=== PATIENT | female | born 1965 | race Caucasian/White ===

== ENCOUNTER 2018-08-22 09:14 | Emergency (ER) | payer OTHER | END 2018-08-22 15:19 | disposition home or self-care (01) | LOC: JER 09:14 ==

== ENCOUNTER 2018-11-04 11:06 | Emergency (ER) | payer OTHER ==
[2018-11-04 11:19] VITALS: BP 113/56; PULSE 71; TEMP 97.7; BMI 39.1
--- NOTE | 2018-11-04 12:11 | PDOC ---
History of Present Illness - General Chief Complaint: Ingestion Stated Complaint: INGESTION Time Seen by Provider: 11/04/18 11:38 History Source: Patient Exam Limitations: Other (leg blind) - History of Present Illness Initial Comments: 11/04/18 12:02 53-year-old female with history of legal blindness, acid reflux and hiatal hernia presents to ED for evaluation of accidental ingestion of Windex. Patient who is legally blind had assistance while moving last month from her sister-in- law who poured Windex into a water bottle to prevent spillage and then patient possibly accidentally put it in the fridge when it was on the counter thinking it was a water bottle and took it to work with her today. Patient states took a mouthful this morning after opening her bottle and swallowed it. When she realized it was not water, she went immediately to the sink and started rinsing her mouth. Patient states since then has had mild indigestion and burping which she states she suffers from frequently. Patient has no complaints of difficulty swallowing, talking, burning to her esophagus or sharp abdominal pain. Patient also denies any nausea or vomiting since the incident which occurred around 9 AM. She states has had only water to drink since the incident Timing/Duration: 1-3 hours Severity: mild Associated Symptoms: reports: other (indigestion and burping) Past History - Travel Traveled outside of the country in the last 30 days: No Close contact w/someone who was outside of country & ill: No - Past Medical History Allergies/Adverse Reactions: Allergies Allergy/AdvReac Type Severity Reaction Status Date / Time No Known Allergies Allergy Verified 11/04/18 11:16 Home Medications: Ambulatory Orders Ezetimibe [Zetia -] 10 mg PO DAILY 11/05/11 Vitamin E (Dl, Acetate) [Vitamin E] 400 unit PO DAILY 11/05/11 Albuterol Sulfate Inhaler - [Ventolin HFA Inhaler -] 1 - 2 inh IH PRN PRN Montelukast Na [Singulair -] 10 mg PO HS 12/18/12 [place] Oil/Bliss-3 Fatty Acids [Fish Oil 500 mg Softgel] 1 cap PO DAILY Tiotropium [place] [Spiriva] 1 inh PO DAILY 08/25/13 Omeprazole 10 mg PO DAILY #7 capsule. 08/22/18 Topiramate [Topamax] 50 mg PO DAILY 08/22/18 Anemia: No Asthma: Yes Cancer: No Cardiac Disorders: No CVA: No COPD: No CHF: No Dementia: No Diabetes: No GI Disorders: Yes (ACID REFLUX,HIATAL HERNIA; RECTOCELE;RECTAL VARICES) Disorders: Yes (PELVIC FLOOR DYSFUNCTION) HTN: No Hypercholesterolemia: Yes Liver Disease: Yes (FATTY LIVER) Seizures: No Thyroid Disease: No - Surgical History Abdominal Surgery: Yes (COLON resection, prolapse) Appendectomy: No Cardiac Surgery: Yes (open heart as a child) Cholecystectomy: Yes (galbladder) Lung Surgery: No Neurologic Surgery: No Orthopedic Surgery: No - Suicide/Smoking/Psychosocial Hx Smoking Status: No Smoking History: Never smoked Have you smoked in the past 12 months: No Number of Cigarettes Smoked Daily: 0 Hx Alcohol Use: No Drug/Substance Use Hx: No Substance Use Type: None Hx Substance Use Treatment: No Review of Systems - Review of Systems Able to Perform ROS?: Yes Constitutional: No: Symptoms Reported HEENTM: No: Symptoms Reported, Throat Pain, Throat Swelling, Difficulty Swallowing Respiratory: No: Symptoms reported Cardiac (ROS): No: Symptoms Reported ABD/GI: Yes: Indigestion, Other (burping) : No: Symptoms Reported Musculoskeletal: No: Symptoms Reported Integumentary: No: Symptoms Reported Neurological: No: Headache, Weakness, Dizziness Hematologic/Lymphatic: No: Symptoms Reported *Physical Exam - Vital Signs Last Vital Signs Temp Pulse Resp BP Pulse Ox 97.7 F 71 18 113/56 L 97 11/04/18 11:18 11/04/18 11:18 11/04/18 11:18 11/04/18 11:18 11/04/18 11:18 - Physical Exam General Appearance: Yes: Nourished, Appropriately Dressed. No: Apparent Distress HEENT: positive: Normal Voice, Pharynx Normal (no erythema, no excoriation uvula midline no edema noted) Neck: positive: Supple. negative: Tender Respiratory/Chest: positive: Lungs Clear, Normal Breath Sounds. negative: Respiratory Distress, Accessory Muscle Use, Stridor, Wheezing Cardiovascular: positive: Regular Rhythm, Regular Rate. negative: Murmur Gastrointestinal/Abdominal: positive: Soft. negative: Tenderness Integumentary: positive: Normal Color, Warm, Moist Medical Decision Making - Medical Decision Making 11/04/18 107 Chief complaint: Accidental ingestion of Windex which was estimated to be a mouth full of fluid. Patient states rinse the mouth immediately and drink water. Patient states mild indigestion which she suffers from on a daily basis but has had burping since incident which she states she has occasionally when "something does not agree with my stomach" Exam: Patient has water bottle with her which has a bluish fluid and it which I smelled and is consistent with Windex. No abdominal tenderness no acute findings vital signs stable speaking full sentences Plan: Call poison control and spoke to Kee, who states patient needs to observe up to 6 hours and to give bland carbohydrates such as bread or crackers and observe for complaints of abdominal pain, vomiting , nausea, difficulty swallowing, or difficulty breathing. Patient understands the plan and was given 2 packets of zoraida crackers 11/04/18 15:10 Tolerated a bottle of water into additional zoraida crackers. Patient has had no complaints of worsening symptoms. Patient will be discharged home after her vitals are repeated patient also instructed to have a family member or friend inspect the home for other possible hazards *DC/Admit/Observation/Transfer Diagnosis at time of Disposition: Accidental ingestion of substance - Discharge Dispostion Disposition: HOME Condition at time of disposition: Good - Referrals Referrals: Abhishek Bermudez MD [Primary Care Provider] - - Patient Instructions Printed Discharge Instructions: DI for Accidental Ingestion -- Adult Additional Instructions: I recommend to have one of your family members or friends go to the home and inspected for other possible hazards. If any of your symptoms that we discussed today occur please return to the nearest ER. Otherwise follow-up with your doctor. - Post Discharge Activity
== END 2018-11-04 15:47 | disposition home or self-care (01) ==
LOC: JER 11:06
DX: T65.891A Toxic effect of other specified substances, accidental (unintentional), initial encounter (principal); E78.00 Pure hypercholesterolemia, unspecified; K76.0 Fatty (change of) liver, not elsewhere classified; X58.XXXA Exposure to other specified factors, initial encounter; Y93.89 Activity, other specified; Y92.89 Other specified places as the place of occurrence of the external cause
CPT/HCPCS: 99282-25

== ENCOUNTER 2021-02-02 04:29 | Day surgery (SDC) | payer OTHER ==
[2021-01-31 12:24] VITALS: BMI 42.3
[2021-02-02 06:42] LABS: PH,URINE 5.5 (5.0-8.0); URINE APPEARANCE CLEAR; URINE BILIRUBIN NEGATIVE (NEGATIVE); URINE COLOR YELLOW; URINE GLUCOSE (UA) NEGATIVE (NEGATIVE); URINE KETONE NEGATIVE (NEGATIVE); URINE LEUK ESTERASE NEGATIVE (NEGATIVE); URINE NITRITE NEGATIVE (NEGATIVE); URINE PROTEIN NEGATIVE (NEGATIVE); URINE UROBILINOGEN 0.2 mg/dL (0.2-1.0)
[2021-02-02] MEDS ORDERED: LIDOCAINE HCL 1%, 10 MG/ML (20ML VIAL) ONE (07:08)
[2021-02-02] MEDS ORDERED: BUPIVACAINE HCL/PF 0.5% (5MG/ML) 10 ML VIAL ONE (07:08)
[2021-02-02] MEDS ORDERED: PROPOFOL 20 ML ONE (07:30)
[2021-02-02] MEDS ORDERED: MIDAZOLAM HCL 2 MG/2 ML SINGLE DOSE VIAL ONE ×2 (07:30→07:31)
[2021-02-02] MEDS ORDERED: DESFLURANE GAS 240 ML BOTTLE IH ONE (07:35)
[2021-02-02] MEDS ORDERED: ceFAZolin SODIUM 1 GM VIAL IVPB ONE (08:05)
[2021-02-02] MEDS ORDERED: KETAMINE HCL 200 MG/20 ML VIAL ONE (08:15)
[2021-02-02] MEDS ORDERED: ONDANSETRON 4 MG/2 ML VIAL IVPUSH PRN (08:16)
[2021-02-02] MEDS ORDERED: oxyCODONE HCL 5 MG TABLET PO PRN (08:16)
[2021-02-02] MEDS ORDERED: LIDOCAINE HCL 1%, 10 MG/ML (20ML VIAL) PNB ONE (08:20)
[2021-02-02] MEDS ORDERED: BUPIVACAINE HCL/PF 0.5% (5 MG/ML) 30 ML VIAL IJ ONE (08:20)
[2021-02-02] MEDS ORDERED: LACTATED RINGERS SOLUTION 1,000 ML IV SCH (08:30)
[2021-02-02] MEDS ORDERED: ceFAZolin SODIUM 1 GM VIAL ONE (09:24)
[2021-02-02] MEDS ORDERED: KETOROLAC TROMETHAMINE 30 MG/1 ML VIAL ONE (09:24)
[2021-02-02] MEDS ORDERED: ONDANSETRON 4 MG/2 ML VIAL ONE (09:24)
[2021-02-02 11:58] VITALS: BP 126/72; PULSE 65; TEMP 98.2
[2021-02-02 12:48] LABS: HIV INTERPRETATION NEGATIVE (NEGATIVE)
== END 2021-02-02 10:50 | disposition home or self-care (01) ==
LOC: JASU-SURG 04:29
PROVIDERS: ATTEND Orthopaedic Surgery
PROC: 01N50ZZ Release Median Nerve, Open Approach (ICD-10-PCS; principal; 2021-02-02 08:00)
DX: G56.01 Carpal tunnel syndrome, right upper limb (principal); M65.9 Synovitis and tenosynovitis, unspecified
CPT/HCPCS: 36415; 81003; 84460; 86803; 87340; 87389; 88304-TC

== ENCOUNTER 2021-02-20 12:57 | Emergency (ER) | payer OTHER ==
[2021-02-20 13:11] VITALS: BP 126/85; PULSE 72; TEMP 97; BMI 42.3
== END 2021-02-20 14:04 | disposition home or self-care (01) ==
LOC: JERFT 12:57
DX: Z48.01 Encounter for change or removal of surgical wound dressing (principal)
CPT/HCPCS: 99281-25

== ENCOUNTER 2021-08-29 04:08 | Day surgery (SDC) | payer OTHER ==
[2021-08-25 14:06] VITALS: BMI 38.3
[2021-08-29] MEDS ORDERED: BUPIVACAINE HCL/PF 0.5% (5MG/ML) 10 ML VIAL ONE (11:10)
[2021-08-29] MEDS ORDERED: MIDAZOLAM HCL 2 MG/2 ML SINGLE DOSE VIAL ONE ×2 (11:12→11:37)
[2021-08-29] MEDS ORDERED: PROPOFOL 20 ML ONE ×2 (11:37→12:03)
[2021-08-29] MEDS ORDERED: ceFAZolin SODIUM 1 GM VIAL ONE (11:49)
[2021-08-29] MEDS ORDERED: ceFAZolin SODIUM 1 GM VIAL IVPB ONE (11:55)
[2021-08-29] MEDS ORDERED: BUPIVACAINE HCL/PF 0.5% (5MG/ML) 10 ML VIAL IJ ONE (12:00)
[2021-08-29] MEDS ORDERED: LIDOCAINE HCL 1%, 10 MG/ML (20ML VIAL) SQ ONE (12:00)
[2021-08-29] MEDS ORDERED: FENTANYL CITRATE/PF 50 MCG/ML VIAL ONE (12:05)
[2021-08-29] MEDS ORDERED: oxyCODONE HCL 5 MG TABLET PO PRN (12:43)
[2021-08-29] MEDS ORDERED: ACETAMINOPHEN 325 MG TABLET (FP) PO PRN (12:43)
[2021-08-29] MEDS ORDERED: ONDANSETRON 4 MG/2 ML VIAL IVPUSH PRN (12:43)
[2021-08-29] MEDS ORDERED: LACTATED RINGERS SOLUTION 1,000 ML IV SCH (12:45)
[2021-08-29 14:24] VITALS: BP 128/69; PULSE 65; TEMP 97.3
== END 2021-08-29 14:45 | disposition home or self-care (01) ==
LOC: JASU-SURG 04:08
PROVIDERS: ATTEND Orthopaedic Surgery
PROC: 0LB50ZZ Excision of Right Lower Arm and Wrist Tendon, Open Approach (ICD-10-PCS; 2021-08-29)
PROC: 0LB50ZZ Excision of Right Lower Arm and Wrist Tendon, Open Approach (ICD-10-PCS; 2021-08-29)
PROC: 0LB50ZZ Excision of Right Lower Arm and Wrist Tendon, Open Approach (ICD-10-PCS; 2021-08-29)
PROC: 0LB50ZZ Excision of Right Lower Arm and Wrist Tendon, Open Approach (ICD-10-PCS; 2021-08-29)
PROC: 0LB50ZZ Excision of Right Lower Arm and Wrist Tendon, Open Approach (ICD-10-PCS; 2021-08-29)
PROC: 0LB50ZZ Excision of Right Lower Arm and Wrist Tendon, Open Approach (ICD-10-PCS; 2021-08-29)
PROC: 0LB50ZZ Excision of Right Lower Arm and Wrist Tendon, Open Approach (ICD-10-PCS; 2021-08-29)
PROC: 0LB50ZZ Excision of Right Lower Arm and Wrist Tendon, Open Approach (ICD-10-PCS; 2021-08-29)
PROC: 0LB50ZZ Excision of Right Lower Arm and Wrist Tendon, Open Approach (ICD-10-PCS; 2021-08-29)
PROC: 01N50ZZ Release Median Nerve, Open Approach (ICD-10-PCS; principal; 2021-08-29 10:00)
DX: G56.01 Carpal tunnel syndrome, right upper limb (principal); M65.9 Synovitis and tenosynovitis, unspecified
CPT/HCPCS: 88304-TC; 94760

== ENCOUNTER 2022-12-07 05:09 | Day surgery (SDC) | payer OTHER ==
[2022-12-06 10:37] VITALS: BMI 37.1
[2022-12-07 08:45] VITALS: TEMP 97.6
[2022-12-07 09:20] VITALS: BP 102/59; PULSE 60; RESP 12
== END 2022-12-07 10:00 | disposition home or self-care (01) ==
LOC: JASU-ENDO 05:09
PROVIDERS: ATTEND Internal Medicine Gastroenterology
PROC: 0DBL8ZX Excision of Transverse Colon, Via Natural or Artificial Opening Endoscopic, Diagnostic (ICD-10-PCS; 2022-12-07)
PROC: 0DBH8ZX Excision of Cecum, Via Natural or Artificial Opening Endoscopic, Diagnostic (ICD-10-PCS; principal; 2022-12-07 08:00)
DX: Z12.11 Encounter for screening for malignant neoplasm of colon (principal); D12.0 Benign neoplasm of cecum; D12.3 Benign neoplasm of transverse colon; Z86.010 Personal history of colon polyps; I86.8 Varicose veins of other specified sites
CPT/HCPCS: 88305-TC

== ENCOUNTER 2023-11-01 04:41 | Day surgery (SDC) | payer OTHER ==
[2023-10-25 15:29] VITALS: BMI 37.5
[2023-11-01 12:12] VITALS: TEMP 98
[2023-11-01 12:47] VITALS: BP 116/65; PULSE 63; RESP 18
== END 2023-11-01 12:39 | disposition home or self-care (01) ==
LOC: JASU-ENDO 04:41
PROVIDERS: ATTEND Internal Medicine Gastroenterology
PROC: 0DB78ZX Excision of Stomach, Pylorus, Via Natural or Artificial Opening Endoscopic, Diagnostic (ICD-10-PCS; 2023-11-01)
PROC: 0DB68ZX Excision of Stomach, Via Natural or Artificial Opening Endoscopic, Diagnostic (ICD-10-PCS; principal; 2023-11-01 10:30)
DX: K29.50 Unspecified chronic gastritis without bleeding (principal); K31.A11 Gastric intestinal metaplasia without dysplasia, involving the antrum
CPT/HCPCS: 88305-TC; 88342-TC